=== PATIENT | female | born 1990 | race Caucasian/White ===

== ENCOUNTER 2017-10-10 15:40 | Emergency (ER) | payer OTHER ==
[2017-10-10 15:55] VITALS: RESP 16; TEMP 97.3
--- NOTE | 2017-10-10 17:12 | EDPHY ---
H & P Time Seen by Provider: 10/10/17 17:11 HPI/ROS: HPI: This is a 27-year-old female presents with Chief Complaint: Periumbilical abdominal pain Location: Periumbilical Quality:pain Duration: Signs and Symptoms: no fever, no nausea, no vomiting, no hematemesis, no blood in stool, no abdominal bloating, no diarrhea, no back pain, no urinary symptoms , no testicular/groin pain, no indigestion, no chest pain, no shortness of breath Timing: Sudden, waxes and wane Severity: Moderate to severe Context: Patient reports that she woke up Monday evening with periumbilical, constant, severe, radiating to her back pain. She describes that it lasted for several minutes and then improved when she got up and went to the couch and curled up in a position. She reports that is occurred approximately 4-5 times since then. It mostly occurs when she gets up to walk around. She had a bowel movement yesterday. Denies any vaginal bleeding, vaginal discharge, dyspareunia, diarrhea, fever, vomiting, nausea. She is sexually active. LMP 8- 14 days ago. Has a NuvaRing. Last Pap, pelvic exam was approximately 1 year ago. She reports that she has had a decreased appetite but is tolerating foods. Denies any foods make the pain worse. Denies any urinary symptoms. Modifying Factors: None Comment: ROS: see HPI Constitutional: No fever, no chills, no weight loss Eyes: No blurred vision Respiratory: No shortness of breath, no cough Cardiovascular: No chest pain, no palpitations Gastrointestinal: No nausea, no vomiting, no diarrhea, no hematemesis, no blood in stool Genitourinary: No dysuria, no blood in urine Extremities: No myalgias, no edema Neurologic: No weakness, no numbness Skin: No rashes, no petechiae Hematologic: No bruising, no bleeding MEDICAL/SURGICAL/SOCIAL HISTORY: Medical history: Generally healthy. Does not take any regular medications. Surgical history: Denies Social history: Employed. CONSTITUTIONAL: Pleasant nontoxic appearance adult white female, awake and alert, no obvious distress HEENT: Atraumatic and normocephalic, PERRL, EOMI. Tympanic membranes clear. Oropharynx clear, no exudate and moist pink mucosa. Airway patent. No lymphadenopathy. No meningismus. Cardiovascular: Normal S1/S2, tachycardia, regular rhythm, without murmur rub or gallop. PULMONARY/CHEST: Symmetrical and nontender. Clear to auscultation bilaterally. Good air movement. No accessory muscle usage. ABDOMEN: Soft, nondistended, nonspecific nonfocal generalized abdominal tenderness that is more concentrated in the periumbilical area. Bowel sounds heard all 4 quadrants. no rebound, no guarding, no peritoneal signs, no masses or organomegaly. No CVAT. EXTREMITIES: 2/2 pulses, strength 5/5, no deformities, no clubbing, no cyanosis or edema. NEUROLOGICAL: no focal neuro deficits. GCS 15. SKIN: Warm and dry, no erythema. no rash. Good capillary refill. Source: Patient Exam Limitations: No limitations - Personal History LMP (Females 10-55): 8-14 Days Ago Current Tetanus Diphtheria and Acellular Pertussis (TDAP): Unsure - Medical/Surgical History Hx Asthma: No Hx Chronic Respiratory Disease: No Hx Diabetes: No Hx Cardiac Disease: No Hx Renal Disease: No Hx Cirrhosis: No Hx Alcoholism: No Hx HIV/AIDS: No Hx Splenectomy or Spleen Trauma: No - Social History Smoking Status: Current some day smoker Constitutional: Initial Vital Signs Temperature (C) 36.3 C 10/10/17 15:52 Heart Rate 101 H 10/10/17 15:52 Respiratory Rate 16 10/10/17 15:52 Blood Pressure 128/75 H 10/10/17 15:52 O2 Sat (%) 96 10/10/17 15:52 O2 Delivery Mode Room Air Allergies/Adverse Reactions: No Known Drug Allergies Allergy (Verified 10/10/17 15:55) Home Medications: Medication Instructions Recorded Polyethylene Glycol 3350 [Miralax 17 gm PO DAILY #20 pkt 10/10/17 17 gm (*)] Medical Decision Making - Diagnostics Imaging Results: Imaging Impressions Abdomen CT 10/10/17 17:25 Impression: Mild amount of nonspecific free fluid in the pelvis. I telephoned results to Mary Carrasquillo PA-C at 1850 hours. Pelvic/Renal Ultrasound 10/10/17 17:25 Impression: Normal ultrasound pelvis. Findings and recommendations discussed with Mary Carrasquillo at 1850 hour, 2016. Final report concurs with initial preliminary interpretation. ED Course/Re-evaluation: Labs, urinalysis, IV fluids, IV medications, CT abdomen and pelvis scan, pelvic ultrasound ordered Patient given 1 L normal saline Afebrile nontoxic in appearance. Mild tachycardia noted upon arrival. 182: Labs reviewed and grossly unremarkable. UA does shows no definite infection but trace bacteria and trace LE; sent for urine culture; will hold off on antibiotics until urine culture results received after discussion with patient. 185: Called by Radiology who advised pelvic ultrasound is completely normal. 185: Called by Dr. Marcus who advises that CT abdomen and pelvis scan shows mild free fluid in the pelvis, no appendicitis, no cholecystitis, no obstruction , no colitis, with [id number] constipation. Reassessed patient who advises that periumbilical pain has decreased significantly. She reports that she has not been drinking water as much as she should be. Offered patient pelvic exam and 1 she hurt her pelvic ultrasound results she would prefer to follow up with her OBGYN for her yearly exam Differential Diagnosis: Abdominal pain in a female including but not limited to ovarian cyst, pelvic inflammatory disease, ovarian torsion, urinary tract infection, and appendicitis. - Data Points Laboratory Results: Laboratory Results 10/10/17 17:00 10/10/17 17:00 10/10/17 10/10/17 10/10/17 17:50 17:08 17:00 WBC RBC Hgb Hct MCV MCH MCHC RDW Plt Count MPV Neut % (Auto) Lymph % (Auto) [place] % (Auto) Eos % (Auto) Baso % (Auto) Nucleat RBC Rel Count Absolute Neuts (auto) Absolute Lymphs (auto) Absolute Monos (auto) Absolute Eos (auto) Absolute Basos (auto) Absolute Nucleated RBC Immature Gran % Immature Gran # VBG Lactic Acid 0.6 mmol/L L mmol/L (0.7-2.1) Sodium Potassium Chloride Carbon Dioxide Anion Gap BUN Creatinine Estimated GFR Glucose Calcium Total Bilirubin Conjugated Bilirubin Unconjugated Bilirubin AST ALT Alkaline Phosphatase Total Protein Albumin Lipase Beta HCG, Qual NEGATIVE Urine Color YELLOW Urine Appearance CLEAR Urine pH 7.0 (5.0-7.5) Ur Specific [place] 1.010 (1.002-1.030) Urine Protein NEGATIVE (NEGATIVE) Urine Ketones NEGATIVE (NEGATIVE) Urine Blood NEGATIVE (NEGATIVE) Urine Nitrate NEGATIVE (NEGATIVE) Urine Bilirubin NEGATIVE (NEGATIVE) Urine Urobilinogen NEGATIVE EU EU (0.2-1.0) Ur Leukocyte Esterase TRACE H (NEGATIVE) Urine RBC 10-15 /hpf H /hpf (0-3) Urine WBC NONE SEEN /hpf /hpf (0-3) Ur Epithelial Cells TRACE /lpf /lpf (NONE-1+) Urine Bacteria TRACE /hpf H /hpf (NONE SEEN) Urine Mucus TRACE /lpf /lpf (NONE-1+) Urine Glucose NEGATIVE (NEGATIVE) 10/10/17 10/10/17 17:00 17:00 WBC 4.12 10^3/uL 10^3/uL (3.80-9.50) RBC 4.41 10^6/uL 10^6/uL (4.18-5.33) Hgb 14.0 g/dL g/dL (12.6-16.3) Hct 39.3 % % (38.0-47.0) MCV 89.1 fL fL (81.5-99.8) MCH 31.7 pg pg (27.9-34.1) MCHC 35.6 g/dL g/dL (32.4-36.7) RDW 11.9 % % (11.5-15.2) Plt Count 150 10^3/uL 10^3/uL (150-400) MPV 9.8 fL fL (8.7-11.7) Neut % (Auto) 65.6 % % (39.3-74.2) Lymph % (Auto) 23.5 % % (15.0-45.0) [place] % (Auto) 8.3 % % (4.5-13.0) Eos % (Auto) 1.9 % % (0.6-7.6) Baso % (Auto) 0.2 % L % (0.3-1.7) Nucleat RBC Rel Count 0.0 % % (0.0-0.2) Absolute Neuts (auto) 2.70 10^3/uL 10^3/uL (1.70-6.50) Absolute Lymphs (auto) 0.97 10^3/uL L 10^3/uL (1.00-3.00) Absolute Monos (auto) 0.34 10^3/uL 10^3/uL (0.30-0.80) Absolute Eos (auto) 0.08 10^3/uL 10^3/uL (0.03-0.40) Absolute Basos (auto) 0.01 10^3/uL L 10^3/uL (0.02-0.10) Absolute Nucleated RBC 0.00 10^3/uL 10^3/uL (0-0.01) Immature Gran % 0.5 % % (0.0-1.1) Immature Gran # 0.02 10^3/uL 10^3/uL (0.00-0.10) VBG Lactic Acid Sodium 138 mEq/L mEq/L (134-144) Potassium 3.2 mEq/L L mEq/L (3.5-5.2) Chloride 99 mEq/L mEq/L (97-110) Carbon Dioxide 28 mEq/l mEq/l (22-31) Anion Gap 11 mEq/L mEq/L (8-16) BUN 9 mg/dL mg/dL (7-23) Creatinine 0.9 mg/dL mg/dL (0.6-1.0) Estimated GFR > 60 Glucose 97 mg/dL mg/dL (70-100) Calcium 8.8 mg/dL mg/dL (8.5-10.4) Total Bilirubin 0.5 mg/dL mg/dL (0.1-1.4) Conjugated Bilirubin 0.3 mg/dL mg/dL (0.0-0.5) Unconjugated Bilirubin 0.2 mg/dL mg/dL (0.0-1.1) AST 21 IU/L IU/L (14-46) ALT 29 IU/L IU/L (9-52) Alkaline Phosphatase 37 IU/L L IU/L (38-126) Total Protein 6.2 g/dL L g/dL (6.3-8.2) Albumin 3.6 g/dL g/dL (3.5-5.0) Lipase 98 IU/L IU/L (23-300) Beta HCG, Qual Urine Color Urine Appearance Urine pH Ur Specific [place] Urine Protein Urine Ketones Urine Blood Urine Nitrate Urine Bilirubin Urine Urobilinogen Ur Leukocyte Esterase Urine RBC Urine WBC Ur Epithelial Cells Urine Bacteria Urine Mucus Urine Glucose Medications Given: Discontinued Medications Dicyclomine HCl (Bentyl) 20 mg PO EDNOW ONE Stop: 10/10/17 19:01 Last Admin: 10/10/17 19:10 Dose: 20 mg Sodium Chloride (Ns) 1,000 mls @ 0 mls/hr IV EDNOW ONE; Wide Open PRN Reason: Protocol Stop: 10/10/17 17:26 Last Admin: 10/10/17 17:34 Dose: 1,000 mls Departure - Departure Disposition: Home, Routine, Self-Care Clinical Impression: Constipation Qualifiers: Constipation type: unspecified constipation type Qualified Code(s): K59.00 - Constipation, unspecified Irritable bowel Qualifiers: Irritable bowel syndrome type: with constipation Qualified Code(s): K58.1 - Irritable bowel syndrome with constipation Condition: Good Instructions: Polyethylene Glycol 3350 (By mouth), Irritable Bowel Syndrome (ED ), Constipation (ED) Additional Instructions: Please drink 8-10 glasses of water daily. Eat a diet high in fiber. Take MiraLax daily for 7 days and then daily as needed for normal soft bowel movement. Urinalysis today showed trace bacteria; will send for urine culture. If urine culture comes back positive, the emergency room call you with the results. At which time they will call in antibiotic to your pharmacy request. Please follow-up with her primary care provider in 3-4 days if symptoms continue to persist or worsen. Please follow-up with your OBGYN in the next 1-2 weeks for yearly pelvic exam/ Pap smear. Referrals: Melida Wei MD [Primary Care Provider] - As per Instructions Prescriptions: Polyethylene Glycol 3350 [Miralax 17 gm (*)] 17 gm PO DAILY #20 pkt
[2017-10-10 17:20] LABS: COLOR YELLOW; LEUKOCYTE ESTERASE,URINE TRACE (NEGATIVE); NITRITE,URINE NEGATIVE (NEGATIVE)
[2017-10-10] MEDS ORDERED: NS 1,000 ML IV ONE (17:25)
[2017-10-10 17:39] LABS: % IMMATURE GRANULYOCYTES 0.5 % (0.0-1.1); ABSOLUTE IMMATURE GRANULOCYTES 0.02 10^3/uL (0.00-0.10); ADD DIFF? NO; ADD MORPH? NO; ADD SCAN? NO; ATYPICAL LYMPHOCYTE FLAG 0 (0-99); FRAGMENT RBC FLAG 0 (0-99); HEMATOCRIT 39.3 % (38.0-47.0); LEFT SHIFT FLG 0 (0-99); LIPEMIA HEMOLYSIS FLAG 90 (0-99); MEAN CELL HEMOGLOBIN 31.7 pg (27.9-34.1); MEAN CELL HEMOGLOBIN CONCENTR. 35.6 g/dL (32.4-36.7); MEAN CELL VOLUME 89.1 fL (81.5-99.8); MEAN PLATELET VOLUME 9.8 fL (8.7-11.7); PLATELET CLUMPS FLAG 30 (0-99); PLATELET COUNT 150 10^3/uL (150-400); RED BLOOD CELL COUNT 4.41 10^6/uL (4.18-5.33); RED CELL DISTRIBUTION WIDTH 11.9 % (11.5-15.2)
[2017-10-10 17:43] LABS: BACTERIA TRACE /hpf (NONE SEEN); MUCUS TRACE /lpf (NONE-1+)
[2017-10-10 17:45] LABS: WBC,URINE NONE SEEN /hpf (0-3)
[2017-10-10 17:46] LABS: ALANINE AMINOTRANSFERASE 29 IU/L (9-52); ALBUMIN 3.6 g/dL (3.5-5.0); ALKALINE PHOSPHATASE 37 IU/L (38-126); ANION GAP 11 mEq/L (8-16); ASPARTATE AMINOTRANSFERASE 21 IU/L (14-46); BILIRUBIN,TOTAL 0.5 mg/dL (0.1-1.4); BILIRUBIN-CONJUGATED 0.3 mg/dL (0.0-0.5); BILIRUBIN-UNCONJUGATED 0.2 mg/dL (0.0-1.1); CALCIUM 8.8 mg/dL (8.5-10.4); CARBON DIOXIDE 28 mEq/l (22-31); CHLORIDE 99 mEq/L (97-110); CREATININE 0.9 mg/dL (0.6-1.0); GLOMERULAR FILTRATION RATE > 60; GLUCOSE 97 mg/dL (70-100); POTASSIUM 3.2 mEq/L (3.5-5.2); SODIUM 138 mEq/L (134-144); TOTAL PROTEIN 6.2 g/dL (6.3-8.2)
[2017-10-10] MEDS ORDERED: IOPAMIDOL (ISOVUE-300) 100 ML BTL ONE (17:54)
[2017-10-10 18:45] VITALS: BP 110/65; PULSE 86; O2SAT 97
[2017-10-10] MEDS ORDERED: DICYCLOMINE 10 MG CAP PO ONE (19:00)
== END 2017-10-10 19:13 | disposition home or self-care (01) ==
DX: K59.00 Constipation, unspecified (principal); K58.1 Irritable bowel syndrome with constipation; F17.200 Nicotine dependence, unspecified, uncomplicated; E86.9 Volume depletion, unspecified
CPT/HCPCS: Q9967